=== PATIENT | female | born 1955 | race Caucasian/White ===

== ENCOUNTER → 2023-06-15 08:45 | Outpatient (CLI) | payer BC, SELFPAY ==
--- NOTE | 2023-06-15 08:48 | DI.RAD.S_ITS ---
PROCEDURE: XR CERVICAL SPINE 4V OR 5V INDICATIONS: neck pain TECHNIQUE: 5 views of the cervical spine acquired. COMPARISON: None. FINDINGS: Bones: No fractures or dislocations to the T1 level. Odontoid view is suboptimal. Multilevel degenerative disc disease, moderate at C5-C6 and C6-C7, mild at other levels. Moderate bilateral facet arthropathy, most pronounced at C3-C4, C4-C5 and C5-C6. Oblique images demonstrate bony foraminal stenoses bilaterally, most pronounced at C4-C5, C5-C6 and C6-C7. Soft tissues: No prevertebral soft tissue swelling. IMPRESSION: 1. Multilevel degenerative disc disease and facet arthropathy as described. 2. Multilevel mild foraminal stenoses bilaterally. Consider MRI for further evaluation. Dictated by: Wil Watts M.D. on 06/16/2023 at 13:42 Approved by: Wil Watts M.D. on 06/16/2023 at 13:45
== END ==
PROVIDERS: Referring Provider Anesthesiology; Visit Provider Anesthesiology
DX: M50.31 Other cervical disc degeneration, high cervical region (principal); M48.02 Spinal stenosis, cervical region; M47.812 Spondylosis without myelopathy or radiculopathy, cervical region
CPT/HCPCS: 72050

== ENCOUNTER 2023-11-16 09:25 | Emergency (ER) | payer BC, SELFPAY ==
[2023-11-16 09:26] VITALS: BP 173/104; PULSE 85; RESP 16; TEMP 36.8; O2SAT 100; BMI 27.2
--- NOTE | 2023-11-16 09:33 | DI.RAD.S_ITS ---
PROCEDURE: XR CHEST 1V INDICATIONS: Shortness of breath TECHNIQUE: One view of the chest was acquired. COMPARISON: None. FINDINGS: Surgical changes and devices: None. Lungs and pleura: Lungs are clear. No pleural effusions or pneumothorax. Mediastinum: Mediastinal contours appear normal. Heart size is normal. Bones and chest wall: No suspicious bony lesions. Overlying soft tissues appear unremarkable. IMPRESSION: No acute cardiopulmonary pathology. Dictated by: Philip Gregory M.D. on 11/16/2023 at 10:02 Approved by: Philip Gregory M.D. on 11/16/2023 at 10:02
--- NOTE | 2023-11-16 09:37 | EKG_ITS ---
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
--- NOTE | 2023-11-16 09:47 | ED_ITS ---
HPI - Chest Pain General Chief Complaint: Chest Pain Stated Complaint: SOB Time Seen by Provider: 11/16/23 09:45 Source: patient and family Mode of arrival: Ambulatory Limitations: no limitations Limitations: no limitations History of Present Illness HPI narrative: 67-year-old female with a history of glaucoma who presents with complaint of trouble breathing for the past week she describes substernal chest discomfort and tightness without any radiation, she is felt lightheaded like she might pass out but has not. She is felt tingling and numb in her arms and legs. She states she is unsure if it came on abruptly or sort of gradually but has been persistent. States it has not improved which is what caused her to present today. States she had a fever 2 months and had COVID 2 months ago. Has not had any fevers recently feels like she needs to cough but has not been coughing. She denies any nausea or vomiting no diaphoresis. No abdominal back or flank pain. No new swelling in her extremities. Patient states she has been mildly constipated but had a bowel movement yesterday. Denies any urinary symptoms. States she is 2 different eyedrops that she uses daily, denies any other prescription medications. Had a prior appendectomy. No tobacco, alcohol or recreational drugs. Does not have a primary care locally. Does seem quite anxious on exam. Patient denies any long distance travel or prolonged sitting. Denies any known cardiac, pulmonary embolic history for herself or family. Related Data Home Medications Medication Instructions Recorded Confirmed latanoprost 0.005 % eye drops 1 drp EYE-LEFT DAILY 06/15/23 11/16/23 brimonidine 0.2 % eye drops drp EYE-BOTH 11/16/23 11/16/23 fluorometholone 0.1 % eye drp EYE-BOTH 11/16/23 11/16/23 drops,suspension Allergies Allergy/AdvReac Type Severity Reaction Status Date / Time No Known Drug Allergies Allergy Verified 11/16/23 13:16 Review of Systems Review of Systems ROS Unobtainable: All systems reviewed & are unremarkable except as noted in HPI and below Patient History Medical History Cervical spondylosis Neck pain Social History Smoking Status: Never smoker Smoking Status: Never smoker alcohol intake frequency: holidays/special occasions only Substance Use Type: does not use Exam Narrative Exam Narrative: GEN: well nourished, anxious female, alert and oriented x 3, patient appears to be in mild distress. HEENT: Atraumatic, pupils are equal round reactive to light, extraocular movements are intact, nares are clear, there is no conjunctival pallor. Throat is clear without any exudates, erythema, tonsillar enlargement or uvular deviation, patient has a mild bilateral submandibular lymphadenopathy. She is slightly hoarse. No stridor, no muffled voice no difficulty with breathing. Patient is resting comfortably on the bed. HEART: Regular rate and rhythm without murmur, clicks, rubs. No JVD. No edema bilateral lower extremities. LUNGS:Lungs clear to auscultation, no wheezes, rales, crackles, chest moves symmetrically, patient has good breath sounds bilaterally. No tachypnea accessory muscle use. Speaks in full sentences. ABD:bowel sounds normal, soft, non-tender, no guarding, rebound, rigidity, no masses noted, no hepatosplenomegaly MSCL: Non-tender, no muscle atrophy, muscles strength 5/5 upper and lower extremities, full range of motion. NEURO:CN 2-12 intact, sensation normal. Initial Vital Signs Initial Vital Signs: Vital Signs Temperature 98.3 F 11/16/23 09:26 Pulse Rate 85 11/16/23 09:26 Respiratory Rate 16 11/16/23 09:26 Blood Pressure 173/104 H 11/16/23 09:26 Pulse Oximetry 100 11/16/23 09:26 Oxygen Delivery Method Room Air 11/16/23 09:26 Course Orders Ordered: Discontinued Medications Potassium Chloride (Potassium Chloride 20 Meq Tab) 40 meq PO NOW ONE Stop: 11/16/23 10:28 Last Admin: 11/16/23 11:39 Dose: Not Given Documented By: MPO Vital Signs Vital signs: Vital Signs - 8 hr 11/16/23 09:26 Temperature 98.3 F Pulse Rate 85 Respiratory Rate 16 Blood Pressure 173/104 H Pulse Oximetry 100 Oxygen Delivery Method Room Air MDM - Chest Pain Lab Data 11/16/23 09:40 11/16/23 09:40 Labs: Lab Results 11/16/23 11/16/23 11/16/23 Range/Units 09:40 09:40 11:48 WBC 5.2 (4.5-11.0) X10^3/uL RBC 4.66 (4.0-5.2) X10^6/uL Hgb 14.0 (12.0-16.0) g/dL Hct 41.2 (36-46) % MCV 88.4 (80-100) fL MCH 30.0 (26-34) PG MCHC 33.9 (30-36) % RDW 14.9 H (11.6-14.8) % Plt Count 239 (150-400) X10^3/uL Neut % (Auto) 63.7 (50-75) % Lymph % (Auto) 27.1 (25-40) % [place] % (Auto) 5.7 (3-14) % Eos % (Auto) 2.3 (2-4) % Baso % (Auto) 1.2 (0-2) % Neut # (Auto) 3300 (3192-2557) /uL Lymph # (Auto) 1400 (1350-9985) /uL [place] # (Auto) 300 (0-900) /uL Eos # (Auto) 100 (0-450) /uL Baso # (Auto) 100 (0-100) /uL PT 10.5 (9.4-12.5) SECONDS INR 0.9 (0.9-1.3) D-Dimer 307 (<500) ng/ml Sodium 140 (137-145) mmol/L Potassium 3.3 L (3.4-5.1) mmol/L Chloride 107 (98-107) mmol/L Carbon Dioxide 24 (22-32) mmol/L BUN 9 (7-17) mg/dL Creatinine 0.65 (0.52-1.04) mg/dL Estimated GFR > 60 (>60) mL/min BUN/Creatinine Ratio 13.8 (6-22) Glucose 118 H (80-110) mg/dL Lactate 2.4 H 1.0 (0.7-2.1) mmol/L Calcium 10.1 (8.4-10.2) mg/dL Total Bilirubin 1.4 H (0.2-1.3) mg/dL AST 24 (14-36) IU/L ALT 24 (<35) IU/L Alkaline Phosphatase 93 (38-126) U/L Total Creatine Kinase 61 (30-135) U/L Troponin I Cancelled < 0.012 NT-Pro-B Natriuret Pep 102 (<125) pg/mL Total Protein 7.7 (6.3-8.2) g/dL Albumin 4.4 (3.5-5.0) g/dL Globulin 3.3 (1.7-4.1) g/dL Albumin/Globulin Ratio 1.3 (1.0-2.8) Chlamy pneumoniae PCR Not detected (Not Detect) Adenovirus (PCR) Not detected (Not Detect) B.parapertussis DNA PCR Not detected (Not Detecte) Coronavirus OC43 (PCR) Not detected (Not Detect) Coronavirus HKU1 (PCR) Not detected (Not Detect) Coronavirus 229E (PCR) Not detected (Not Detect) SARS-CoV-2 (PCR) Not detected (Not Detecte) Coronavirus NL63 (PCR) Not detected (Not Detect) Human Metapneumovir PCR Not detected (Not Detect) Influenza Type A (PCR) Not detected (Not Detect) Influenza Type B (PCR) Not detected (Not Detect) M. pneumoniae (PCR) Not detected (Not Detect) Parainfluenza 1 (PCR) Not detected (Not Detect) Parainfluenza 2 (PCR) Not detected (Not Detect) Parainfluenza 3 (PCR) Not detected (Not Detect) Parainfluenza 4 (PCR) Not detected (Not Detect) RSV (PCR) Not detected (Not Detect) Entero/Rhino (PCR) Not detected (Not Detect) Imaging Data Chest x-ray: Radiologist's Impression: Close Chest X-Ray (Signed) Philip Gregory - 11/16/23 Cervical Spine X-Ray (Signed) Wil Watts - 06/15/[address] [address] XRay Report Signed Patient: Sydney Valdivia MR#: [id number] : 1955 Acct:[id number] Age/Sex: 67 / F Date of Service: 11/16/23 Loc: ED Accession Number: [id number] Procedure: XR chest 1V Ordering Provider: Mank,Uma C D.O. PROCEDURE: XR CHEST 1V INDICATIONS: Shortness of breath TECHNIQUE: One view of the chest was acquired. COMPARISON: None. FINDINGS: Surgical changes and devices: None. Lungs and pleura: Lungs are clear. No pleural effusions or pneumothorax. Mediastinum: Mediastinal contours appear normal. Heart size is normal. Bones and chest wall: No suspicious bony lesions. Overlying soft tissues appear unremarkable. IMPRESSION: No acute cardiopulmonary pathology. Dictated by: Philip Gregory M.D. on 11/16/2023 at 10:02 Approved by: Philip Gregory M.D. on 11/16/2023 at 10:02 ECG Data Attestation: I personally reviewed and interpreted this ECG as follows: Prior ECG tracings: not available for review Interpretation: Sinus rhythm incomplete right bundle-branch, rate of 78 AR 176 QRS of 92 QTC of 433. No acute ST elevation or depression noted. No priors in EMR. MDM Narrative Medical decision making narrative: 67-year-old female with complaint of substernal chest discomfort and shortness of breath with tingling in her extremities and feeling very lightheaded for the past week. Patient is quite hypertensive initially otherwise vitals are appropriate she is 100% room air with no tachypnea accessory muscle use. Lungs are clear on exam with normal cardiac exam. EKG shows sinus rhythm no acute ST changes no priors for comparison Chest x-ray shows no acute change. Labs show white count 5.2 hemoglobin of 14 platelets of 239, D-dimer is 307, potassium 3.3 sodium is 140 chloride 107 CO2 is 24 BUN 9 creatinine 0.65, glucose is 118 initial lactate was 2.4 on repeat it was 1, calcium is 10.1 bilirubin is 1.4 AST ALT alk-phos are all negative, troponins less than 0.012 with a 102. Respiratory panel is negative. Patient has been anxious throughout her stay, she refused repeat vitals, refused potassium. She has ambulated to the bathroom without issue several times. Discussed findings with patient today, she has had a week of symptoms they have not resolved, my suspicion for ACS or coronary artery disease is low, no significant changes to her pulmonary status with clear chest x-ray negative troponin, negative D-dimer feel patient is appropriate for discharge home. I did recommend that she follow up with primary care as she 67 and has not had a regular annual exam in some time. Discussed with patient, may have little bit of pharyngitis, she is describing some symptoms for the past week but also some ear discomfort on and off runny nose, discomfort in her throat but for the past 8 months. States it has not been progressing but not improving. She does have some mild lymphadenopathy bilaterally. Her exam is overall reassuring discussed with patient I would like for her to follow up. She did refuse the oral potassium as well as multiple sats of vitals. Repeat set of vitals looked appropriate. Discussed return precautions with her and her . Discharge Plan Departure Patient Disposition: Home Clinical Impression: Dyspnea Qualifiers: Dyspnea type: unspecified Qualified Code(s): R06.00 - Dyspnea, unspecified Instructions: DI for Shortness of Breath Activity Restrictions/Additional Instructions: I do recommend you establish with a primary care to have an annual and follow- up. Some of your symptoms you are describing sound consistent with pharyngitis I would recommend trying an [id number] antihistamine such as loratadine once daily. If your symptoms are persisting without resolving than you do need to be seen and followed up with primary care as well. Your labs, imaging, EKG and respiratory panel overall were reassuring, you are bilirubin was slightly elevated. Please return for fevers worsening symptoms, passing out, persistent vomiting, coughing up blood, stridor, new swelling in your extremities or other new or concerning changes. Prescriptions: No Action brimonidine 0.2 % drops EYE-BOTH fluorometholone 0.1 % drops,suspension EYE-BOTH latanoprost 0.005 % drops 1 drp EYE-LEFT DAILY Referrals: Miscellaneous,Doctor, MD [Primary Care Provider] - Stand Alone Forms: Patient Portal/API
[2023-11-16 09:57] LABS: Add Manual Diff / Slide Review NO; Basophils Absolute Auto 100 /uL (0-100); Basophils Percent Auto 1.2 % (0-2); Eosinophils Absolute Auto 100 /uL (0-450); Eosinophils Percent Auto 2.3 % (2-4); Hematocrit 41.2 % (36-46); Lymphocytes Absolute Auto 1400 /uL (1100-4500); Lymphocytes Percent Auto 27.1 % (25-40); Mean Corpuscular HGB Conc 33.9 % (30-36); Mean Corpuscular Volume 88.4 fL (80-100); Monocytes Absolute Auto 300 /uL (0-900); Monocytes Percent Auto 5.7 % (3-14); Neutrophils Absolute Auto 3300 /uL (1500-7000); Neutrophils Percent Auto 63.7 % (50-75); Platelet Count 239 X10^3/uL (150-400); Red Blood Cell Count 4.66 X10^6/uL (4.0-5.2); Red Cell Distribution Width 14.9 % (11.6-14.8); White Blood Cell Count 5.2 X10^3/uL (4.5-11.0)
--- NOTE | 2023-11-16 10:04 | PC.NURSE ---
Pt refusing to have BP cuff on arm. States the cuff is too tight and is unable to to tolerate having the cuff on. VSS.
[2023-11-16 10:07] LABS: INR 0.9 (0.9-1.3); Prothrombin Time 10.5 SECONDS (9.4-12.5)
[2023-11-16 10:11] LABS: Creatine Kinase 61 U/L (30-135)
[2023-11-16 10:12] LABS: Alanine Aminotransferase 24 IU/L (<35); Albumin 4.4 g/dL (3.5-5.0); Albumin Globulin Ratio 1.3 (1.0-2.8); Alkaline Phosphatase 93 U/L (38-126); Aspartate Aminotransferase 24 IU/L (14-36); BUN Creatinine Ratio 13.8 (6-22); Bilirubin Total 1.4 mg/dL (0.2-1.3); Blood Urea Nitrogen 9 mg/dL (7-17); Calcium 10.1 mg/dL (8.4-10.2); Carbon Dioxide 24 mmol/L (22-32); Chloride 107 mmol/L (98-107); Estimated Glomerular Filt Rate > 60 mL/min (>60); Globulin 3.3 g/dL (1.7-4.1); Glucose 118 mg/dL (80-110); HEMOLYSIS < 15 (0-50); Lactate (Lactic Acid) 2.4 mmol/L (0.7-2.1); Potassium 3.3 mmol/L (3.4-5.1); Sodium 140 mmol/L (137-145); Total Protein 7.7 g/dL (6.3-8.2)
--- NOTE | 2023-11-16 10:13 | PC.NURSE ---
Pt refusing BP cuff and VS. Pt anxious and agitated.
[2023-11-16 10:21] LABS: NT-proBNP (BNP-Adult 18+) 102 pg/mL (<125)
[2023-11-16 10:23] LABS: Troponin I < 0.012 ng/mL (0.01-0.034)
[2023-11-16 10:30] LABS: D Dimer 307 ng/ml (<500)
[2023-11-16 10:44] LABS: Adenovirus Not Detected (Not Detect); B. parapertussis Not Detected (Not Detecte); Bordetella pertussis Not Detected (Not Detect); Chlamydophila pneumoniae Not Detected (Not Detect); Coronavirus 229E Not Detected (Not Detect); Coronavirus HKU1 Not Detected (Not Detect); Coronavirus NL 63 Not Detected (Not Detect); Coronavirus OC43 Not Detected (Not Detect); Human Metapneumovirus Not Detected (Not Detect); Human Rhinovirus/Enterovirus Not Detected (Not Detect); Influenza A Not Detected (Not Detect); Influenza B Not Detected (Not Detect); Mycoplasma pneumoniae Not Detected (Not Detect); Parainfluenza Virus 1 Not Detected (Not Detect); Parainfluenza Virus 2 Not Detected (Not Detect); Parainfluenza Virus 3 Not Detected (Not Detect); Parainfluenza Virus 4 Not Detected (Not Detect); Respiratory Syncytial Virus Not Detected (Not Detect); SARS- CoV-2 Not Detected (Not Detecte)
[2023-11-16 11:27] LABS: Reflexed Lactate in 2 Hours Y
--- NOTE | 2023-11-16 11:27 | PC.NURSE ---
Pt also refusing any vital signs. C/o SOB and declined any further eval by rt or any albuterol tx until results of respiratory swab. Discussed the importance of treating low potassium and potential consequences of not taking recommended PO potassium ordered by dr garcía. Pt declined PO potassium and would like to speak with Dr about test results and labs prior to taking any medication. Dr García notified.
== END 2023-11-16 12:44 | disposition home or self-care (01) ==
PROVIDERS: Emergency Provider Emergency Medicine
DX: R06.00 Dyspnea, unspecified (principal); I10 Essential (primary) hypertension; K59.00 Constipation, unspecified; R06.02 Shortness of breath; Z11.52 Encounter for screening for COVID-19; I45.10 Unspecified right bundle-branch block
CPT/HCPCS: 36415; 71045; 80053; 82550; 83605; 83880; 84484; 85025; 85379; 85610; 87633; 93005; 99283; 99284

== ENCOUNTER → 2024-08-02 14:06 | Outpatient (CLI) | payer BC, SELFPAY ==
--- NOTE | 2024-08-02 14:12 | DI.RAD.S_ITS ---
PROCEDURE: XR CERVICAL SPINE 4V OR 5V INDICATIONS: NECK PAIN TECHNIQUE: By views of the cervical spine acquired. COMPARISON: [facility], CR, XR CERVICAL SPINE 4V OR 5V, 06/15/2023, 8:47. FINDINGS: Bones: Straightening of normal cervical lordosis is seen. No acute fracture or dislocation. Degenerative endplate changes, loss of disc height and bilateral facet hypertrophic changes are noted throughout cervical spine most notably at C5-6 level. There is suggestion of right worse than left bilateral bony foraminal stenosis at C4-5 and C5-6 levels seen on oblique views. Soft tissues: No prevertebral soft tissue swelling. IMPRESSION: Spondylitic changes throughout cervical spine with right worse than left bilateral bony foraminal stenosis at C4-5 and C5-6 levels seen on oblique views. No fracture or dislocation. Dictated by: Philip Gregory M.D. on 08/02/2024 at 14:45 Approved by: Philip Gregory M.D. on 08/02/2024 at 14:47
== END ==
PROVIDERS: PCP Nurse Practitioner Family; Referring Provider Physical Medicine & Rehabilitation; Visit Provider Physical Medicine & Rehabilitation
DX: M47.812 Spondylosis without myelopathy or radiculopathy, cervical region (principal); M48.02 Spinal stenosis, cervical region; M54.2 Cervicalgia
CPT/HCPCS: 72050

== ENCOUNTER → 2024-09-20 08:47 | Outpatient (CLI) | payer BC, SELFPAY ==
--- NOTE | 2024-09-20 08:49 | DI.MRI.S_ITS ---
PROCEDURE: MR CERVICAL SPINE WO CON INDICATIONS: Cervical stenosis TECHNIQUE: Noncontrast sagittal T1 spin echo and T2 fast spin echo, sagittal STIR, foraminal oblique sagittal T2 fast spin echo, and axial gradient echo or T2 fast spin echo through the cervical spine. COMPARISON: [facility], CR, XR CERVICAL SPINE 4V OR 5V, 08/02/2024, 14:10. FINDINGS: Image quality: Excellent. Alignment and Curvature: There is normal bony alignment. Bone Marrow: Modic type 1 reactive endplate changes adjacent to the C5-C6 , C6- C7 and T1-T2 discs. Spinal Cord: Visualized spinal cord has normal size and signal. No cerebellar tonsillar herniation. Paraspinous Soft Tissues: No paravertebral masses. Prevertebral soft tissues are normal in thickness. C2-C3: Loss of disc signal. Mild bilateral facet hypertrophy. No central stenosis. Mild left neural foraminal narrowing. No neural compression. C3-C4: Loss of disc signal and height. Minimal, diffuse disc bulge. Mild bilateral facet hypertrophy. Severe bilateral uncovertebral joint hypertrophy. Severe bilateral neural foraminal narrowing with compression of the C4 nerve roots. C4-C5: Loss of disc signal and height. Mild to moderate diffuse disc bulge. Mild bilateral facet hypertrophy. Moderate bilateral uncovertebral joint hypertrophy. Mild narrowing of the central canal. Moderate right and mild left neural foraminal narrowing. No neural compression. C5-C6: Loss of disc signal and height. Moderate, diffuse disc bulge. Mild bilateral facet hypertrophy. Severe right and moderate left uncovertebral joint hypertrophy. Moderate narrowing of the central canal. Severe right and mild left neural foraminal narrowing with compression of the right C6 nerve root. No neural compression. C6-C7: Loss of disc signal and height. Mild to moderate diffuse disc bulge. Mild bilateral facet hypertrophy. Mild bilateral uncovertebral joint hypertrophy. Mild narrowing of the central canal. Mild bilateral neural foraminal narrowing. No neural compression. C7-T1: Loss of disc signal. Minimal, diffuse disc bulge. Mild bilateral facet hypertrophy. No central stenosis. No neural foraminal narrowing. No neural compression. IMPRESSION: Multilevel degenerative disc disease. Multilevel facet and uncovertebral arthropathy. No severe central canal stenosis. Severe bilateral C3-C4 and right C5-C6 neural foraminal stenosis with compression of the bilateral C4 nerve roots and right C6 nerve root. Dictated by: Dena Lewis MD, PhD on 09/20/2024 at 11:37 Approved by: Dena Lewis MD, PhD on 09/20/2024 at 11:43
== END ==
LOC: MRI 08:48
PROVIDERS: PCP Nurse Practitioner Family; Referring Provider Physical Medicine & Rehabilitation; Visit Provider Physical Medicine & Rehabilitation
DX: M47.22 Other spondylosis with radiculopathy, cervical region (principal); M50.121 Cervical disc disorder at C4-C5 level with radiculopathy; M48.02 Spinal stenosis, cervical region
CPT/HCPCS: 72141